=== PATIENT | male | born 1950 | race Two or more races ===

== ENCOUNTER 2025-07-22 07:22 | Outpatient (CLI) | payer OTHER | END 2025-07-22 07:23 | disposition home or self-care (01) | LOC: NUCLEAR 07:22 | PROVIDERS: ATTEND Internal Medicine Gastroenterology | DX: C18.6 Malignant neoplasm of descending colon (principal) | CPT/HCPCS: 78815; A9552 ==

== ENCOUNTER 2025-09-13 09:15 | Inpatient (IN) | payer OTHER ==
[~2025-09-13] VITALS: Ht 172.7 cm; Wt 83.9 kg
[2025-09-13] MEDS ORDERED: LOTREL 5-20 MG1 CAP PO (15:20)
[2025-09-13] MEDS ORDERED: ACID REDUCER20 M1 PO (15:21)
[2025-09-13] MEDS ORDERED: FENOFIBRATE150 MG PO (15:21)
[2025-09-20] MEDS ORDERED: LIDOCAINE HCL 1%/EPINEPHRINE 20ML VIAL IJ ONE (09:15)
[2025-09-20] MEDS ORDERED: METRONIDAZOLE/SODIUM CHLORIDE 500 MG/100 ML PIGGYBACK IV ONE (09:15)
[2025-09-20] MEDS ORDERED: BUPIVACAINE HCL 30 ML VIAL IJ ONE (09:15)
[2025-09-20] MEDS ORDERED: CEFTRIAXONE SODIUM 2,000 MG VIAL IV ONE (09:15)
[2025-09-20] MEDS ORDERED: OxyCODONE HCL 5 MG TABLET (ROXICODONE) PO PRN (11:30)
[2025-09-20] MEDS ORDERED: DEXTROSE 50 % IN WATER 0.5 G/ML DISP.SYRIN IV PRN (11:30)
[2025-09-20] MEDS ORDERED: ONDANSETRON HCL 2 MG/ML VIAL IV PRN (11:30)
[2025-09-20] MEDS ORDERED: MORPHINE SULFATE 4 MG/ML CARTRIDGE IV PRN (11:30)
[2025-09-20] MEDS ORDERED: 0.9 % SODIUM CHLORIDE 1,000 ML IV SCH (11:30)
[2025-09-20] MEDS ORDERED: HYOSCYAMINE SULFATE 0.125 MG TAB.SUBL SL SCH (13:00)
[2025-09-20] MEDS ORDERED: ACETAMINOPHEN 500 MG GEL..CAP PO SCH (14:00)
[2025-09-20] MEDS ORDERED: SUGAMMADEX SODIUM 200 MG/2 ML VIAL IV ONE (14:00)
[2025-09-20] MEDS ORDERED: ENALAPRILAT DIHYDRATE 1.25 MG/ML VIAL IV PRN (15:30)
[2025-09-20 15:32] LABS: BASO % 0.1 % (0.1-1.2); EOS # 0.00 (0.04-0.54); EOS % 0.0 % (0.7-7.0); LYMPH # 0.56 (1.18-3.74); LYMPH % 5.7 % (19.3-53.1); MEAN PLATELET VOLUME 10.00 fl (9.4-12.4); MONO # 0.59 (0.24-0.82); MONO % 6.0 % (4.7-12.5); NEUT # 8.57 (1.56-6.13); NEUT % 87.9 % (34.0-71.1); RED CELL DISTRIBUTION WIDTH 14.8 % (11.6-14.4)
[2025-09-20 15:57] LABS: BUN CREA RATIO 12.0 (7.0-25.0); CREATININE SERUM 1.06 mg/dL (0.70-1.30); GFR 68.11; GLUCOSE FASTING 156.0 mg/dL (65-100); OSMOLALITY SERUM 286.0 MOSM/KG (275-295)
[2025-09-20 16:36] VITALS: BP 146/78; O2SAT 96
[2025-09-20] MEDS ORDERED: GABAPENTIN 300 MG CAPSULE PO SCH (17:00)
[2025-09-20] MEDS ORDERED: METRONIDAZOLE/SODIUM CHLORIDE 500 MG/100 ML PIGGYBACK IV SCH (17:00)
[2025-09-20] MEDS ORDERED: CELECOXIB 200 MG CAPSULE PO SCH (21:00)
[2025-09-20] MEDS ORDERED: FAMOTIDINE/PF 20 MG/2 ML VIAL IV PUSH SCH (21:00)
[2025-09-21 00:30] VITALS: BP 124/69; O2SAT 97
[2025-09-21 06:31] LABS: BASO % 0.4 % (0.1-1.2); EOS # 0.02 (0.04-0.54); EOS % 0.2 % (0.7-7.0); LYMPH # 0.94 (1.18-3.74); LYMPH % 11.7 % (19.3-53.1); MEAN PLATELET VOLUME 9.60 fl (9.4-12.4); MONO # 0.90 (0.24-0.82); MONO % 11.2 % (4.7-12.5); NEUT # 6.15 (1.56-6.13); NEUT % 76.3 % (34.0-71.1); RED CELL DISTRIBUTION WIDTH 14.6 % (11.6-14.4)
[2025-09-21 07:01] LABS: BUN CREA RATIO 9.0 (7.0-25.0); CREATININE SERUM 1.13 mg/dL (0.70-1.30); GFR 63.26; GLUCOSE FASTING 109.0 mg/dL (65-100); OSMOLALITY SERUM 286.0 MOSM/KG (275-295)
[2025-09-21 08:00] VITALS: BP 146/79; BP 99/63; O2SAT 91; O2SAT 95
[2025-09-21] MEDS ORDERED: PATIENTS OWN MEDICATION (MEDICAMENTO EN PISO) PO SCH (09:00)
[2025-09-21] MEDS ORDERED: MAGNESIUM SULFATE IN WATER 50 ML IV NR (10:45)
[2025-09-21 11:21] VITALS: O2SAT 95
[2025-09-21 16:00] VITALS: BP 156/90; O2SAT 94
[2025-09-21] MEDS ORDERED: ENOXAPARIN SODIUM 40 MG/0.4 ML SYRINGE SUBCUTANEO SCH (17:00)
[2025-09-21] MEDS ORDERED: AMINO ACIDS 1 EACH TABLET PO SCH (17:00)
[2025-09-21 23:48] VITALS: BP 145/84; O2SAT 97
[2025-09-22 06:51] LABS: BASO % 0.3 % (0.1-1.2); EOS # 0.15 (0.04-0.54); EOS % 1.7 % (0.7-7.0); LYMPH # 0.77 (1.18-3.74); LYMPH % 8.8 % (19.3-53.1); MEAN PLATELET VOLUME 9.90 fl (9.4-12.4); MONO # 1.05 (0.24-0.82); MONO % 12.0 % (4.7-12.5); NEUT # 6.73 (1.56-6.13); NEUT % 76.9 % (34.0-71.1); RED CELL DISTRIBUTION WIDTH 14.9 % (11.6-14.4)
[2025-09-22 07:10] LABS: BUN CREA RATIO 7.0 (7.0-25.0); CREATININE SERUM 1.08 mg/dL (0.70-1.30); GFR 66.65; GLUCOSE FASTING 116.0 mg/dL (65-100); OSMOLALITY SERUM 288.0 MOSM/KG (275-295)
[2025-09-22 08:02] VITALS: BP 176/82; O2SAT 97
[2025-09-22] MEDS ORDERED: ENOXAPARIN SODIUM 40 MG/0.4 ML SYRINGE SUBCUTANEO SCH (09:00)
[2025-09-22] MEDS ORDERED: POTASSIUM CHLORIDE 20MEQ/100ML H2O PB IV NR (09:45)
[2025-09-22 11:35] VITALS: BP 166/91
[2025-09-22] MEDS ORDERED: POTASSIUM PHOS,M-BASIC-D-BASIC 15 MM in 0.9 % SODIUM CHLORIDE 250 ML IV NR (16:00)
[2025-09-22 16:12] VITALS: BP 163/84; O2SAT 95
[2025-09-23 00:37] VITALS: BP 129/78; O2SAT 98
[2025-09-23 08:00] VITALS: BP 155/92; O2SAT 95
[2025-09-23] MEDS ORDERED: SODIUM CHLORIDE 0.45 % 1,000 ML IV SCH (10:15)
[2025-09-23] MEDS ORDERED: HYOSCYAMINE0.125 M1 SL (13:26)
[2025-09-23] MEDS ORDERED: GABAPENTIN300 MG PO (13:27)
[2025-09-23] MEDS ORDERED: TRAM1TAB98 PO (13:27)
[2025-09-23] MEDS ORDERED: PEPCID AC20 MG PO (13:28)
== END 2025-09-23 15:40 | disposition home or self-care (01) | DRG 331 ==
LOC: O/R 09-20 06:00 → SURH 09-20 06:00
PROVIDERS: Internal Medicine Geriatric Medicine; ADMIT Surgery; ATTEND Surgery
PROC: 07BB4ZZ Excision of Mesenteric Lymphatic, Percutaneous Endoscopic Approach (ICD-10-PCS; 2025-09-20)
PROC: 8E0W4CZ Robotic Assisted Procedure of Trunk Region, Percutaneous Endoscopic Approach (ICD-10-PCS; 2025-09-20)
PROC: 0DTG4ZZ Resection of Left Large Intestine, Percutaneous Endoscopic Approach (ICD-10-PCS; principal; 2025-09-20 14:00)
DX: C18.6 Malignant neoplasm of descending colon (principal); D37.4 Neoplasm of uncertain behavior of colon; D12.5 Benign neoplasm of sigmoid colon; R59.0 Localized enlarged lymph nodes; I11.9 Hypertensive heart disease without heart failure; R73.01 Impaired fasting glucose; E78.1 Pure hyperglyceridemia
CPT/HCPCS: 44204; 44213; 38570; S2900